=== PATIENT | male | born 1970 | race African-American/Black ===

== ENCOUNTER 2021-01-14 10:29 | Emergency (ER) | payer OTHER ==
[~2021-01-14] VITALS: Ht 170.2 cm; Wt 72.6 kg
[~2021-01-14 10:29] MED LIST: ACETAMINOPHEN650 M5 PO; AUGMENTIN 875875 MG PO; DOXYCYCLINE 10100 MG PO; NOHOMEMEDICATIONS; ULTRAM 50MG TAB50 MG PO; VERAPAMIL SR 1120 M1 PO
[2021-01-14 14:00] LABS: ABSOLUTE NEUTROPHILS 4.2 thou/uL (1.4-8.2); BASOPHILS 0.5 % (0.0-2.0); EOSINOPHILS 0.6 % (0.0-3.0); HEMATOCRIT 38.9 % (42.0-52.0); HEMOGLOBIN 13.1 gm/dL (14.0-18.0); LYMPHOCYTES 16.6 % (24.0-44.0); MCH 27.8 pg (26.0-34.0); MCHC 33.6 g/dL (28.0-37.0); MCV 82.6 fL (80.0-100.0); MONOCYTES 8.1 % (1.0-8.0); PLATELET COUNT 260 thou/uL (150-400); POLYS 74.2 % (36.0-66.0); RBC 4.71 mil/uL (4.50-6.00); WBC 5.7 thou/uL (4.0-11.0)
[2021-01-14 14:35] LABS: CALCIUM 9.6 mg/dL (8.5-10.1); POTASSIUM 3.8 mmol/L (3.5-5.1)
[2021-01-14] MEDS ORDERED: MOBIC7.5 MG PO (15:19)
[2021-01-14 16:13] VITALS: BP 140/85
--- NOTE | 2021-01-15 10:25 | EKG ---
[address] [address] ELECTROCARDIOGRAM REPORT Name: JE PATEL Room #: [facility]#: [id number] Admission: 01/14/21 Attend Phys: Discharge: 01/14/21 Date of : 70 Report #: [id number] [facility] ED Test Date: 2021-01-14 Test Time: 12:28:11 Pat Name: JE PATEL Department: Room: Gender: [employer]: KRISTEN : 1970 Requested By: Jordan Can Order Number: [id number] MD: Jose G Kruse Measurements Intervals [place] Rate: 97 P: 71 AK: 126 QRS: 40 QRSD: 90 T: 43 QT: 341 QTc: 433 Interpretive Statements Sinus rhythm Left ventricular hypertrophy ST elev, probable normal early repol pattern Compared to ECG 08/07/2012 08:32:19 ST (T wave) deviation now present Electronically Signed On 01-15-2021 10:25:33 [facility] by Jose G Kruse [email or web address] <ELECTRONICALLY SIGNED> By: Jose G Kruse MD 01/15/21 1025 1228 1228 Jose G Kruse MD /[email or web address]
== END 2021-01-14 16:14 | disposition home or self-care (01) ==
LOC: ER 10:29
PROVIDERS: Nurse Practitioner
DX: M25.552 Pain in left hip (principal)